=== PATIENT | female | born 1950 | race Caucasian/White ===

== ENCOUNTER 2019-11-15 19:05 | Emergency (ER) | payer OTHER ==
[~2019-11-15] VITALS: Ht 162.6 cm; Wt 86.2 kg
[2019-11-15 20:10] VITALS: BP 148/90
--- NOTE | 2019-11-15 20:13 | NUR ---
TO LOBBY A/W BED AMBULATORY
--- NOTE | 2019-11-15 21:00 | NUR ---
PT AMBULATED TO BED 02
[2019-11-15] MEDS ORDERED: DIAZEPAM 5 MG TAB PO ONE (21:15)
[2019-11-15] MEDS ORDERED: KETOROLAC 30 MG/ML VIAL IM ONE (21:15)
--- NOTE | 2019-11-15 21:45 | NUR ---
69 YEAR OLD FEMALE COMPLAINS OF BACKPAIN AFTER FALLING LAST NIGHT. PATIENT STATES THAT SHE HIT HER HEAD AND LOWER BACK AFTER FALLING DOWN A LADDER YESTERDAY. PATIENT STATES THAT SOME PAIN RADIATES TO RIGHT LEG. HEAD WITHOUT VISIBLE LACERATION, BLEEDING, AND DENIES DISCHARGE. DENIES LOC, NAUSEA, AND VOMITTING. PATIENT ALERT AND ORIENTED, BREATHING EVEN AND UNLABORED, SKIN WARM AND DRY. BED IN LOWEST POSITION, LOCKED, BED RAIL UPX1.
--- NOTE | 2019-11-15 22:04 | NUR ---
PATIENT ALERT AND AWAKE, BREATHING EVEN AND UNLABORED
--- NOTE | 2019-11-15 23:42 | NUR ---
PATIENT ALERT AND AWAKE, BREATHING EVEN AND UNLABORED
[2019-11-16 00:16] VITALS: BP 146/82
--- NOTE | 2019-11-16 00:16 | NUR ---
Patient discharged with v/s stable. Written and verbal after care instructions given and explained. Patient alert, oriented and verbalized understanding of instructions. Ambulatory with steady gait. All questions addressed prior to discharge. ID band removed. Patient advised to follow up with PMD. Rx of VALIUM, NAPROSYN given. Patient educated on indication of medication including possible reaction and side effects. Opportunity to ask questions provided and answered.
== END 2019-11-16 00:16 | disposition home or self-care (01) ==
LOC: MED 19:05
DX: S39.012A Strain of muscle, fascia and tendon of lower back, initial encounter (principal); S30.0XXA Contusion of lower back and pelvis, initial encounter; S09.90XA Unspecified injury of head, initial encounter; M54.40 Lumbago with sciatica, unspecified side; Z90.49 Acquired absence of other specified parts of digestive tract; W19.XXXA Unspecified fall, initial encounter; Y93.89 Activity, other specified; Y92.89 Other specified places as the place of occurrence of the external cause; Y99.8 Other external cause status
CPT/HCPCS: 70450; 71046; 72100; 96372; 99284; J1885

== ENCOUNTER 2021-09-20 19:42 | Emergency (ER) | payer OTHER ==
[~2021-09-20] VITALS: Ht 154.9 cm; Wt 94.3 kg
[2021-09-20 19:49] VITALS: BP 154/79
--- NOTE | 2021-09-20 19:58 | NUR ---
patinet to [facility] ambulatory
--- NOTE | 2021-09-20 20:51 | NUR ---
PT AMBULATED TO ER BED 04 UNASSISTED
--- NOTE | 2021-09-20 20:52 | NUR ---
PT AMBULATED TO BED 4
[2021-09-20] MEDS ORDERED: LIDOCAINE 2% 1000 MG/50 ML VIAL INJ ONE (21:20)
--- NOTE | 2021-09-20 21:21 | NUR ---
Dr. Muñoz examining patient.
[2021-09-20] MEDS ORDERED: ACETAMINOPHEN 325 MG TAB PO ONE (21:25)
[2021-09-20] MEDS ORDERED: oxyCODONE 10 MG TABER PO ONE (23:40)
[2021-09-20] MEDS ORDERED: cephALEXin 500 MG CAP PO ONE (23:40)
[2021-09-20] MEDS ORDERED: CEPH-588 PO (23:42)
[2021-09-20] MEDS ORDERED: CRUSHER, PILL MC ONE (23:51)
[2021-09-21 01:04] VITALS: BP 128/72
--- NOTE | 2021-09-21 01:06 | NUR ---
PATIENT DC HOME STABLE VITALS SIGNS IN NORMAL LIMITS ALL DC INSTRUTION GAVE AND EXPLAINED //DiCaprio RN
== END 2021-09-20 23:56 | disposition home or self-care (01) ==
LOC: MED 19:42
DX: S51.811A Laceration without foreign body of right forearm, initial encounter (principal); Z79.899 Other long term (current) drug therapy; W23.0XXA Caught, crushed, jammed, or pinched between moving objects, initial encounter; Y93.89 Activity, other specified; Y92.89 Other specified places as the place of occurrence of the external cause; Y99.8 Other external cause status
CPT/HCPCS: 90471; 90715; 99284; J2001